=== PATIENT | female | born 1985 | race African-American/Black ===

== ENCOUNTER 2017-05-05 09:01 | Emergency (ER) | payer BC, MEDICAID ==
[2017-05-05] MEDS ORDERED: Ketorolac Tromethamine 30 MG/ML VIAL ONE (09:30)
[2017-05-05] MEDS ORDERED: Cyclobenzaprine 10 MG TAB ONE (09:30)
== END 2017-05-05 09:50 | disposition home or self-care (01) ==
LOC: SCSER 09:01
DX: M54.5 Low back pain (principal); M62.838 Other muscle spasm; I10 Essential (primary) hypertension; Z79.899 Other long term (current) drug therapy
CPT/HCPCS: 96372; J1885

== ENCOUNTER 2017-06-19 08:13 | Observation (INO) | payer BC ==
[2017-06-19 08:39] LABS: #Basophils 0.1 thou/uL (0.0-0.2); #Eosinphils 0.1 thou/uL (0.0-0.7); #Lymphocytes 2.3 thou/uL (1.20-3.40); #Monocytes 0.4 thou/uL (0.11-0.59); #Neutrophils 4.7 thou/uL (1.40-6.50); %Basophils 1.3 % (0.0-1.0); %Eosinophils 0.9 % (0.0-10.0); %Lymphocytes 30.3 % (21.0-51.0); %Monocytes 5.3 % (0.0-10.0); %Neutrophils 62.1 % (42.0-75.0); Hemoglobin 13.6 g/dL (12.0-16.0); Mean Corpuscular HGB CONC 34.6 g/dL (32.0-36.0); Mean Corpuscular Hemoglobin 30.4 pg (27.0-31.0); Mean Platelet Volume 8.3 fL (7.4-10.4); Platelet Count 268 thou/uL (130-400); RBC Distribution Width 11.7 % (11.5-14.5); Red Blood Cell (RBC) Count 4.49 mill/uL (4.20-5.40); White Blood Cell (WBC) Count 7.5 thou/uL (4.8-10.8)
[2017-06-19 08:56] LABS: ALT (SGPT) 25 U/L (8-55); AST (SGOT) 21 U/L (5-34); Albumin 3.9 g/dL (3.5-5.0); Alkaline Phosphatase 68 U/L (40-150); Anion Gap 14 mmol/L (10-20); BUN (Urea Nitrogen) 17 mg/dL (7.0-18.7); Bilirubin, Total 0.4 mg/dL (0.2-1.2); CK (CPK) 86 U/L (29-168); Calc. Creatinine Clearance 0 mL/min (70-130); Carbon Dioxide 25 mmol/L (22-29); Chloride 103 mmol/L (98-107); Estimated GFR-MDRD Greater than 90; Globulin 3.5 g/dL (2.4-3.5); Glucose 91 mg/dL (70-105); Lipase 39 U/L (8-78); Potassium 3.5 mmol/L (3.5-5.1); Protein, Total 7.4 g/dL (6.0-8.3); Sodium 138 mmol/L (136-145)
[2017-06-19 08:57] LABS: CKMB 0.7 ng/mL (0-6.6); Troponin I 0.025 ng/mL (< 0.028)
--- NOTE | 2017-06-19 09:10 | RAD ---
RADIOGRAPH CHEST 1 VIEW: HISTORY: 31-year-old female with intermittent chest pain. FINDINGS: There is no air space density, pulmonary edema, or pneumothorax. The lateral costophrenic angles are sharp. IMPRESSION: No acute pulmonary findings. wanda [] POS: KRYSTAL
[2017-06-19 11:47] LABS: Troponin I Less than 0.010 ng/mL (< 0.028)
[2017-06-19 14:08] VITALS: BMI 37.1
[2017-06-19 17:55] LABS: CKMB 0.6 ng/mL (0-6.6); Troponin I Less than 0.010 ng/mL (< 0.028)
[2017-06-19] MEDS: Acetaminophen 325 MG TAB PO PRN (20:29)
[2017-06-20 05:18] LABS: Anion Gap 9 mmol/L (10-20); BUN (Urea Nitrogen) 16 mg/dL (7.0-18.7); Calc. Creatinine Clearance 151 mL/min (70-130); Calcium 9.4 mg/dL (7.8-10.44); Carbon Dioxide 30 mmol/L (22-29); Cardiac Risk 4.2 (Less than 4.5); Chloride 100 mmol/L (98-107); Cholesterol 176 mg/dl (< 200 Desired); Estimated GFR-MDRD Greater than 90; Glucose 94 mg/dL (70-105); HDL Cholesterol 42 mg/dL (>60 Neg Risk); LDL Cholesterol, Calculated 115 mg/dL; Phosphorus 3.7 mg/dL (2.3-4.7); Potassium 3.4 mmol/L (3.5-5.1); Sodium 136 mmol/L (136-145); Triglycerides 93 mg/dL (Less than 150)
[2017-06-20] MEDS ORDERED: Potassium Chloride 20 MEQ TAB PO SCH (06:15)
--- NOTE | 2017-06-20 08:48 | PDOC.FM ---
- Subjective Subjective: Pt reports doing well this morning. Denies any acute events overnight. States she did have some chest pain when she would reach over across the bed. Denies any other chest pain. Denies any SOB. Denies any recent trauma or inciting event. Denies any other concerns at this time - Objective Vital Signs & Weight: Vital Signs (12 hours) Temp Pulse Resp BP BP Pulse Ox 06/20/17 07:34 97.6 F 76 16 117/73 97 06/20/17 04:15 69 18 121/68 Weight Weight 92.125 kg I&O: 06/19/17 06/20/17 06/21/17 06:59 06:59 06:59 Intake Total 360 Balance 360 Result Diagrams: 06/19/17 08:25 06/20/17 04:24 Radiology Reviewed by me: Yes <Geronimo Cox - Last Filed: 06/20/17 08:46> - Objective Vital Signs & Weight: Vital Signs (12 hours) Temp Pulse Resp BP BP Pulse Ox 06/20/17 12:07 98.3 F 83 18 114/72 99 06/20/17 09:10 97.6 F 76 16 06/20/17 07:34 97.6 F 76 16 117/73 97 06/20/17 04:15 69 18 121/68 Weight Weight 92.125 kg I&O: 06/19/17 06/20/17 06/21/17 06:59 06:59 06:59 Intake Total 360 Balance 360 Result Diagrams: 06/19/17 08:25 06/20/17 04:24 <Philip Paz - Last Filed: 06/20/17 12:47> Phys Exam - Physical Examination HEENT: PERRLA, moist MMs, oral pharynx no lesions Neck: no nodes, supple, full ROM Respiratory: no wheezing, no rales, no rhonchi, clear to auscultation bilateral Cardiovascular: RRR, no significant murmur, no rub Gastrointestinal: soft, non-tender, no distention, positive bowel sounds Musculoskeletal: no edema, pulses present Neurological: non-focal, normal sensation Lymphatic: no nodes Psychiatric: normal affect Skin: no rash, normal turgor <Geronimo Cox - Last Filed: 06/20/17 08:46> Dx/Plan (1) Atypical chest pain Code(s): R07.89 - OTHER CHEST PAIN Status: Acute (2) Hypertension Code(s): I10 - ESSENTIAL (PRIMARY) HYPERTENSION Status: Acute - Plan Plan: 1) Atypical Chest pain likely 2/2 chostochondritis -Pt having pain on movement last night. -Trops have trended down into normal range x2. -Will await results of stress test this am -FLP, TSH, HgbA1c, Mg, P all normal. 2) HTN -continue home meds -BP stable overnigh. <Geronimo Cox - Last Filed: 06/20/17 08:46> Attending Addendum - Attending Addendum I personally evaluated the patient and discussed the management with Dr. Cox. I agree with the History, Examination, Assessment and Plan documented above with any addition or exceptions noted below. Patient currently has no evidence of cardiac induced chest pain. She is scheduled for stress testing this morning, and will likely be discharged after normal result. <Philip Paz - Last Filed: 06/20/17 12:47>
[2017-06-20] MEDS ORDERED: Aspirin 81 mg Enteric Coated Tablet PO SCH (09:00)
[2017-06-20] MEDS ORDERED: Triamterene/Hydrochlorothiazide 37.5 mg/25 mg Tablet PO SCH (09:00)
[2017-06-20 12:12] VITALS: BP 114/72; TEMP 98.3
[2017-06-20] MEDS: Acetaminophen 325 MG TAB PO PRN (12:43)
--- NOTE | 2017-06-20 13:54 | NM ---
CARDIAC SPECT: CLINICAL HISTORY: 31-year-old female with chest pain. TECHNIQUE: A stress-only myocardial perfusion scan was performed following the intravenous administration of 29 mCi technetium-99m sestamibi. Pharmacologic stress with Adenosine was monitored and interpreted by Janelle Burgess. FINDINGS: Homogeneous tracer distribution is seen in the myocardial segments on the post stress images. GATED SPECT LVEF: 62%. WALL MOTION EXAM: Normal. IMPRESSION: Normal post stress myocardial perfusion scan. POS: KRYSTAL
[2017-06-20] MEDS ORDERED: ADENOSINE 60 MG/20 ML VIAL ONE (17:06)
--- NOTE | 2017-06-21 04:17 | DIS-2 ---
DATE OF ADMISSION: 06/19/2017 DATE OF DISCHARGE: 06/20/2017 CONSULTATIONS: None. IMAGING: Chest x-ray on 06/19/2017, showed no acute pulmonary findings. She did get a stress test n [facility] done, which showed ejection fraction of 62%, showed homogeneous tracer distribution i s seen in myocardial segments of the post-stress images. Impression was normal, post-stress myocardi al perfusion scan. PRIMARY DIAGNOSES: 1. Atypical chest pain, likely secondary to costochondritis. 2. Hypertension. DISCHARGE MEDICATIONS: Ibuprofen 400 mg p.o. q.4 hours p.r.n., aspirin 81 mg, and triamterene/hydroc hlorothiazide 37.5/25 mg tablet once daily, and Tylenol 650 mg p.o. q.6 hours. HISTORY OF PRESENT ILLNESS AND BRIEF HOSPITAL COURSE: This is a 31-year-old female that has come in with a month history of intermittent chest pain. She says that this pain comes and goes. Chest pain was relieved by aspirin in the ER, says not really sure what caused the chest pain. Denied any shor tness of breath, fever, chills, or anything like that when she came in to the outside ER, her initial troponin was 0.025, which trended x3 and they would be less than 0.01 on the next 2 checks. CK-MB w as 0.6. No other real abnormalities were found on her labs. Her potassium came down to 3.4 on the s d day of admission. We would replace that once orally. Hemoglobin A1c was 5. Magnesium and lilliana sphorus were normal. TSH was 1.571. Her LDL cholesterol was 115, her HDL was 42, total cholesterol was 136, normal. At this time, she was taken the blood pressure medication and blood pressure will b e stable throughout. Due to her cardiac history, she was also found to have some T-wave inversions o n leads V2 through V6. We got a repeat EKG which showed some nonspecific ST changes again. She did not have a really chronic heart history or any pertinent family history, but due to the EKG changes i n that location of her chest pain. We got the stress test, which will be read as normal above. Afte r discussion with this, she also reported the morning of discharge that she had pain with movement wh en reaching over. Likely, I think that the pain was due to costochondritis. She has been having selvin e back pain and muscle spasms a month before. Discussed with her the need to take scheduled Tylenol and ibuprofen on discharge, also, mention that she might try some good medicine if that does not reso lve it. Recommended she follow up closely with her primary care physician. DISPOSITION: Stable. DISCHARGE INSTRUCTIONS: 1. Location: Home. 2. Diet: Heart healthy diet. 3. Activity: As tolerated. 4. Followup: Need to follow up with her primary care provider within 2 weeks for hospital followup visit.
--- NOTE | 2017-06-21 14:15 | HP-2 ---
DATE OF ADMISSION: 06/19/2017 CODE STATUS: FULL. PRIMARY CARE PHYSICIAN: Shantanu henley. ATTENDING: Dr. Kenny Camara. RESIDENT: Dr. Chelsea Roberson. CHIEF COMPLAINT: Chest pain. HISTORY OF PRESENT ILLNESS: This is a 31-year-old female with past medical history of hypertension t hat presents with several month history of intermittent achy chest pain located in the center of the chest. Patient has denied any radiation of the pain and there was no associated nausea, diaphoresis or shortness of breath. The pain was noted to be worse with movement and exertion. Patient did stat e that it improved with aspirin. However, today's episode lasted for greater than 6 hours with inter mittent pain which is what prompted her visit to the emergency department. In the emergency departme , she was given aspirin 81 mg. PAST MEDICAL HISTORY: Hypertension. PAST SURGICAL HISTORY: Bilateral tubal ligation. ALLERGIES: No known drug allergies. MEDICATIONS: 1. Triamterene/hydrochlorothiazide 37.5/25 mg p.o. daily. FAMILY HISTORY: No history of early coronary artery disease. Mother and father do have hypertension . SOCIAL HISTORY: Patient denies alcohol or drug use. The patient also denies smoking history. REVIEW OF SYSTEMS: A 12 point review of systems is performed. All were negative except as listed in the HPI. PHYSICAL EXAMINATION: VITAL SIGNS: Blood pressure 113/71, pulse 79, respiratory rate 20, T-max 98.5, pulse ox 99% on room air, current weight 92 kilograms. GENERAL: The patient is alert and oriented x3, no acute distress. Well-developed, well-nourished, o bese, appropriately interactive. EYES: Pupils equally round, reactive to light and accommodation. Extraocular muscles intact. Conju nctivae within normal limits. ENT: Nasal mucosa within normal limits. NECK: Supple. CARDIOVASCULAR: Regular rate and rhythm. No murmurs or gallops. Radial and pedal pulses 2+. RESPIRATORY: Normal effort, no retractions. LUNGS: Clear to auscultation bilaterally. SKIN: Warm and dry. No cyanosis or lesions. ABDOMEN: Soft, nontender to palpation. Bowel sounds positive in all 4 quadrants. No masses or dist ention. EXTREMITIES: No clubbing, cyanosis or edema. Patient was extremely tender to palpation at right cos tochondral junction. MUSCULOSKELETAL: Structure within normal limits, tone within normal limits. NEUROLOGIC: No focal deficits. Cranial nerves II-XII intact. GCS 15. PSYCHIATRIC: Appropriate. LABORATORY DATA: 1. CBC reveals a white blood cell count 7.5, hemoglobin 13.6, hematocrit 39.5, platelets 268. 2. CMP reveals sodium 138, potassium 3.5, chloride 103, bicarbonate 25, BUN 17, creatinine 0.78, glu cose 91, calcium 9.0, total protein 7.4, albumin 3.9, total bilirubin 0.4, AST 21, ALT 25, alkaline p hosphatase 68. 3. Troponin 0.025, less than 0.010. 4. Lipase 39. Chest x-ray no acute findings. ASSESSMENT AND PLAN: This is a 31-year-old female with past medical history of hypertension that pre sents with chest pain. 1. Atypical chest pain, likely secondary to costochondritis. The patient is admitted to telemetry o n observation. A cardiac stress test pending for the a.m. She will be made n.p.o. at midnight. Fas ting lipid panel, TSH, magnesium, phosphate and hemoglobin A1c are pending. Troponin negative x2. W e will continue to trend troponin. EKG showed normal sinus rhythm with some T-wave inversions in V2 through 6 as well as leads 1 through aVF with reciprocal leads, inverted. We will do a repeat EKG an d monitor on telemetry. We can consider naproxen or other NSAIDs once stress test results are finali zed. 2. Hypertension. We will continue to monitor blood pressure and continue home medications. 3. Medication noncompliance. We will encourage the patient to stay compliant with her medications t o optimize her medical treatment. DISPOSITION AND LENGTH OF HOSPITAL STAY: One day. Symptomatic medication will be provided. History and physical exam as well as management discussed with Dr. Kenny Camara.
== END 2017-06-20 14:58 | disposition home or self-care (01) ==
LOC: SCSER 08:13 → 2SW 13:59
PROVIDERS: ADMIT Family Medicine; ATTEND Family Medicine
DX: R07.89 Other chest pain (principal); I10 Essential (primary) hypertension; Z79.899 Other long term (current) drug therapy; Z91.14 Patient's other noncompliance with medication regimen; Z98.51 Tubal ligation status
CPT/HCPCS: 36415; 71045; 78452; 80048; 80053; 80061; 82553; 83036; 83690; 83735; 84100; 84443; 84484; 85025; 93005; 93010; 93017; A9500; G0378; J0153